=== PATIENT | male | born 1980 | race Caucasian/White ===

== ENCOUNTER 2020-02-29 12:47 | Emergency (ER) | payer OTHER ==
[~2020-02-29] VITALS: Ht 177.8 cm; Wt 65.8 kg
== END 2020-02-29 14:16 | disposition home or self-care (01) ==
LOC: ER 12:47
DX: M25.561 Pain in right knee (principal)

== ENCOUNTER → 2020-03-02 | Outpatient (CLI) | payer OTHER | END | disposition home or self-care (01) | LOC: MRI 03-01 10:45 | PROVIDERS: ATTEND Family Medicine | DX: M54.6 Pain in thoracic spine (principal); M54.5 Low back pain | CPT/HCPCS: 72146; 73721 ==

== ENCOUNTER 2020-05-04 13:41 | Emergency (ER) | payer OTHER ==
[~2020-05-04] VITALS: Ht 177.8 cm; Wt 65.8 kg
== END 2020-05-04 18:56 | disposition home or self-care (01) ==
LOC: ER 13:41
DX: B34.9 Viral infection, unspecified (principal); Z20.828 Contact with and (suspected) exposure to other viral communicable diseases

== ENCOUNTER 2020-08-01 18:17 | Emergency (ER) | payer OTHER ==
[~2020-08-01] VITALS: Ht 177.8 cm; Wt 63.5 kg
== END 2020-08-01 22:07 | disposition home or self-care (01) ==
LOC: ER 18:17
DX: B34.9 Viral infection, unspecified (principal); F06.4 Anxiety disorder due to known physiological condition; Z03.818 Encounter for observation for suspected exposure to other biological agents ruled out

== ENCOUNTER 2022-01-23 05:50 | Emergency (ER) | payer OTHER ==
[~2022-01-23] VITALS: Ht 170.2 cm; Wt 63.5 kg
== END 2022-01-23 13:34 | disposition home or self-care (01) ==
LOC: ER 05:50
DX: U07.1 COVID-19 (principal)

== ENCOUNTER 2022-02-13 19:34 | Emergency (ER) | payer OTHER ==
[~2022-02-13] VITALS: Ht 177.8 cm; Wt 60.8 kg
[2022-02-13] MEDS ORDERED: ANALPRAM HC 2.530 GM RECTAL (20:39)
== END 2022-02-13 20:59 | disposition home or self-care (01) ==
LOC: ER 19:34
DX: K64.9 Unspecified hemorrhoids (principal)

== ENCOUNTER 2022-02-14 23:29 | Emergency (ER) | payer OTHER ==
[~2022-02-14] VITALS: Ht 177.8 cm; Wt 61.2 kg
[~2022-02-14 23:29] MED LIST: ANALPRAM HC 2.530 GM RECTAL
[2022-02-15] MEDS ORDERED: CARAFATE1 GM PO (02:41)
[2022-02-15] MEDS ORDERED: PEPCID AC20 MG PO (02:41)
[2022-02-15] MEDS ORDERED: PROTONIX20 MG PO (02:41)
== END 2022-02-15 02:49 | disposition home or self-care (01) ==
LOC: ER 23:29
DX: K29.70 Gastritis, unspecified, without bleeding (principal); R07.89 Other chest pain; K20.90 Esophagitis, unspecified without bleeding

== ENCOUNTER 2022-02-15 14:55 | Emergency (ER) | payer OTHER ==
[~2022-02-15] VITALS: Ht 177.8 cm; Wt 60.3 kg
[~2022-02-15 14:55] MED LIST changes: +CARAFATE1 GM PO; +PEPCID AC20 MG PO; +PROTONIX20 MG PO
== END 2022-02-15 17:24 | disposition home or self-care (01) ==
LOC: ER 14:55
DX: K64.9 Unspecified hemorrhoids (principal)